=== PATIENT | female | born 1970 | race Caucasian/White ===

== ENCOUNTER 2018-06-15 00:16 | Outpatient (CLI) | payer MEDICAID, SELFPAY ==
[2018-06-15 10:50] LABS: Cholesterol 159 mg/dL (50-200); HDL Cholesterol 51 mg/dL (40-60); LDL CHOLESTEROL 82 mg/dL (<100); Triglyceride 137 mg/dL (30-150)
== END 2018-06-15 00:36 ==
PROVIDERS: PCP Nurse Practitioner Family; Visit Provider Nurse Practitioner Family
DX: E03.9 Hypothyroidism, unspecified (principal); Z00.00 Encounter for general adult medical examination without abnormal findings
CPT/HCPCS: 36415; 80061; 83721

== ENCOUNTER 2019-05-22 15:03 | Outpatient (REF) | payer MEDICAID, SELFPAY ==
--- NOTE | 2019-05-22 14:00 | PAPFT_PTH ---
PATIENT: Shanika Johnson LOC: [facility] U#:[id number] AGE/SX: 49/F ROOM: RE05/22/[address]: Christina Huston : 1970 BED: DIS: 05/22/2019 SPEC #: [id number] RECD: 05/26/19 12:12 STATUS: LOTTIE REJustina #: [id number] BILL: 05/22/19 14:[address]: Christina Huston DEPT: [facility] Cytology RECD BY: Prisca Samaniego Tissues: 1 - CX/ENDOCX FOR PAP SMEARS Procedures: PAP THIN PREP/UVM Screening HPV DNA PROBE Comments: [id number]
[2019-05-22 19:10] LABS: TSH (W/Ref FT4) 2.41 uIU/mL (0.36-3.74)
== END 2019-05-22 15:23 ==
LOC: NCHCN 15:03
PROVIDERS: PCP Nurse Practitioner Family; Visit Provider Nurse Practitioner Family
DX: E03.9 Hypothyroidism, unspecified (principal); Z12.4 Encounter for screening for malignant neoplasm of cervix; Z11.51 Encounter for screening for human papillomavirus (HPV)
CPT/HCPCS: 88142; 84443; 87624

== ENCOUNTER 2019-06-02 14:28 | Outpatient (REF) | payer MEDICAID, SELFPAY ==
[2019-06-02 14:48] LABS: Anion Gap 8.6 mmol/L (3-11); BUN 15 mg/dL (7-18); CO2 27.4 mmol/L (21.0-32.0); CREATININE 0.64 mg/dL (0.55-1.02); Calculated LDL 132 mg/dL; Chloride 103 mmol/L (98-107); Cholesterol 231 mg/dL (50-200); Glucose 86 mg/dL (70-100); HDL Cholesterol 58 mg/dL (40-60); Sodium 139 mmol/L (136-145); Triglyceride 206 mg/dL (30-150)
== END 2019-06-02 14:48 ==
LOC: NCHCN 14:28
PROVIDERS: PCP Nurse Practitioner Family; Visit Provider Nurse Practitioner Family
DX: E03.9 Hypothyroidism, unspecified (principal); E78.2 Mixed hyperlipidemia; Z00.00 Encounter for general adult medical examination without abnormal findings
CPT/HCPCS: 80048; 80061

== ENCOUNTER 2020-05-06 07:43 | Outpatient (REF) | payer MEDICAID, SELFPAY ==
[2020-05-06 20:54] LABS: Calculated LDL 146 mg/dL (<100); Cholesterol 229 mg/dL (<200); HDL Cholesterol 44 mg/dL (40-60); Triglyceride 199 mg/dL (<150)
== END 2020-05-06 08:03 ==
LOC: NCHCN 07:43
PROVIDERS: PCP Nurse Practitioner Family; Visit Provider Nurse Practitioner Family
DX: E78.2 Mixed hyperlipidemia (principal)
CPT/HCPCS: 80061

== ENCOUNTER 2020-06-07 21:51 | Outpatient (REF) | payer MEDICAID, SELFPAY ==
[2020-06-07 19:05] LABS: TSH (W/Ref FT4) 2.22 uIU/mL (0.36-3.74)
== END 2020-06-07 22:11 ==
LOC: NCHCN 21:51
PROVIDERS: PCP Nurse Practitioner Family; Visit Provider Nurse Practitioner Family
DX: E03.9 Hypothyroidism, unspecified (principal)
CPT/HCPCS: 84443

== ENCOUNTER 2020-07-07 01:33 | Outpatient (CLI) | payer MEDICAID, SELFPAY ==
--- NOTE | 2020-07-07 15:15 | DI.MAMMO_ITS ---
EXAM: MG MAMMO SCREENING CLINICAL HISTORY: SCREENING, Z12.39 TECHNIQUE: Bilateral full field digital CC and MLO mammographic images were obtained with 3D tomosyn thesis and utilizing computer aided detection (CAD). COMPARISON: Available for comparison. FINDINGS: Masses/Architectural Distortion: None seen. Microcalcifications: No suspicious pleomorphic-type are seen. Skin Thickening/Nipple Retraction: None. IMPRESSION: 1. No significant interval change with no specific features of malignancy noted. 2. Unless there is more urgent need, screening mammography is recommended, as per [employer] guidelines. BI-RADS Category 1 - Negative Breast Density - Category B - Scattered areas of fibroglandular density A negative radiographic report should not delay biopsy if a dominant or clinically suspicious mass is present. Up to ten percent of cancers are not identified on mammography. A negative report may reinforce clinical impression. Adenosis and dense breasts may obscure an underlying neoplasm. False positive reports average 6 to 10%. Patient will receive a letter notifying them of these results.
== END 2020-07-07 01:53 ==
PROVIDERS: PCP Nurse Practitioner Family; Visit Provider Nurse Practitioner Family
DX: Z12.31 Encounter for screening mammogram for malignant neoplasm of breast (principal)
CPT/HCPCS: 77063; 77067

== ENCOUNTER 2020-08-10 08:47 | Outpatient (REF) | payer MEDICAID, SELFPAY ==
[2020-08-10 19:59] LABS: Anion Gap 14.3 mmol/L (3-11); BUN 16 mg/dL (7-18); CO2 26.7 mmol/L (21.0-32.0); Calculated LDL 94 mg/dL (<100); Chloride 101 mmol/L (98-107); Cholesterol 195 mg/dL (<200); Glucose 95 mg/dL (74-106); HDL Cholesterol 59 mg/dL (40-60); Potassium 3.5 mmol/L (3.5-5.1); Sodium 142 mmol/L (136-145); Triglyceride 211 mg/dL (<150)
== END 2020-08-10 09:07 ==
LOC: NCHCN 08:47
PROVIDERS: PCP Nurse Practitioner Family; Visit Provider Nurse Practitioner Family
DX: I10 Essential (primary) hypertension (principal); E78.2 Mixed hyperlipidemia
CPT/HCPCS: 80048; 80061

== ENCOUNTER 2022-03-29 13:18 | Outpatient (REF) | payer MEDICAID, SELFPAY ==
[2022-03-29 15:06] LABS: Anion Gap 12.5 mmol/L (3-11); BUN 18 mg/dL (7-18); CO2 24.5 mmol/L (21.0-32.0); CREATININE 0.6 mg/dL (0.55-1.02); Calcium 8.7 mg/dL (8.5-10.1); Chloride 102 mmol/L (98-107); Glucose 100 mg/dL (74-106); Potassium 3.7 mmol/L (3.5-5.1); Sodium 139 mmol/L (136-145)
[2022-03-29 15:26] LABS: Calculated LDL 94 mg/dL (<100); Cholesterol 173 mg/dL (<200); HDL Cholesterol 52 mg/dL (40-60); Triglyceride 135 mg/dL (<150)
== END 2022-03-29 13:19 | disposition home or self-care (01) ==
LOC: NCHCN 13:18
PROVIDERS: PCP Nurse Practitioner Family; Visit Provider Nurse Practitioner Family
DX: I10 Essential (primary) hypertension (principal)
CPT/HCPCS: 80048; 80061

== ENCOUNTER → 2022-04-27 00:12 | Outpatient (CLI) | payer MEDICAID, SELFPAY ==
--- OUTSIDE RECORDS SUMMARY | 2022-04-27 00:14 | XMS_ITS | Encounter Summary ---
:1970 Author Organization [facility] Address [address] [place] [address] Care Team Providers Name Role Phone Unavailable Primary Care Provider Unavailable Encounter Details Date Type Department Care Team Description 12/01/2004 Results Only [facility] - Grazyna Moraes od, Freida Werner, CORK PRESSING MACHINE OPERATOR conversion [address] [place] [phone] (Wo rk) Social History Tobacco Use Types Packs/Day Years Used Date Never Assessed Sex Assigned at Date Recorded Not on file documented as of this encounter Plan of Treatment Not on filedocumented as of this encounter Procedures Procedure Name Priority Date/Time Associated Diagnosis Comme nts CYTOPATHOLOGY Routine 12/01/2004 0:00 EST Results for this procedure are i n the results section . documented in this encounter Results CYTOPATHOLOGY (12/01/2004 0:00 EST) Pathology Report: CYTOPATHOLOGY REPORT [facility] Reports generated via electronic interface contain katya ginal data; however they are lacking the format of the original re port. Caution should be taken when reading/interpreting unfo rmatted reports. Name: ? SUPA VIVAS ? Accession #: ? [id number] : ? 1970 (Age: 34) ??F ?Collect Date: ? 11/21 Location: ? [facility] ? Receive Date : ? 12/05/2004 Provider: ?FREIDA GATES [facility] Copy to: ? Specimen/Source: ?ThinPrep Pap Test, Cervix/ Endocervix Last Menstrual Period: ? 11/08/04 Previous Gynecologic Pathology: ? HSIL: 09/23, 01/21 HPV: Positive 10/06/02 Treatment History: ? LEEP: 01/21 Cone biopsy: 01/21 Other: ? Additional clinical information: BCC , , Additional clinical information: Paps WNL 09/24, 03/24, 09/25, 03/25, 10/27 HPVA - HPV testing requested if ASC-US on the current ThinPrep Pap test. ? SPECIMEN ADEQUACY ? Satisfactory for Evaluation - transformation zone component present GENERAL CATEGORIZATION ? Negative for Intraepithelial Lesion or Malignan cy ? Document reviewed and electronically signed by: ? SUNITA Hilliard(ASCP) ? Report Date: ??12/07/2004 14:31 End of Report Specimen Performing Organization Address City/State/ZIP Code Phon e Number [facility] [address] [phone] SERVICES [facility] [address] [place] [address] documented in this encounter Visit Diagnoses Not on filedocumented in this encounter
--- OUTSIDE RECORDS SUMMARY | 2022-04-27 00:14 | XMS_ITS | Encounter Summary ---
:[address] [facility] Address [address] [place] [address] Care Team Providers Name Role Phone Hailee Teague MD Primary Care Provider Encounter Details Date Type Department Care Team Description 05/22/2019 Results Only [facility]- Speedy Ludwig, [place] [phone] [address] [place], [place] [phone] (Wo rk) Social History Tobacco Use Types Packs/Day Years Used Date Never Assessed Sex Assigned at Date Recorded Not on file documented as of this encounter Plan of Treatment Not on filedocumented as of this encounter Procedures Procedure Name Priority Date/Time Associated Diagnosis Comme nts PAP TEST- RESULT Routine 05/22/2019 0:00 EDT Resu lts for this ONLY procedure are i n the results section. documented in this encounter Results PAP TEST- RESULT ONLY (05/22/2019 0:00 EDT) Pathology Report: CYTOPATHOLOGY REPORT [facility] Reports generated via electronic interface contain katya ginal data; SERVICES however they are lacking the format of the original re port. Caution should be taken when reading/interpreting unfo rmatted reports. Name: ? SUPA VIVAS ? Accession #: ? [id number] ? : ? 1970 (Age: [age]) ??F ?Collect Date: ? 05/22/2019 ? Location: ? [facility] ? Receive Date: ? 9 ? Provider: SPEEDY LITTLE ROCKET TEST FIRE WORKER Copy to: ? Final Report SPECIMEN ADEQUACY ? Satisfactory for Evaluation - transformation zone component absent GENERAL CATEGORIZATION ? Negative for Intraepithelial Lesion or Malignan cy ?? Hormonal/Contraceptive status: None Other: Additional clinical information: Z00.00, Z12.4, Z11.51 Specimen/Source: ??Pap Test, Cervix, ThinPrep Imaging System with manual evaluation Document reviewed and electronically signed by: ? Tony Winters, CT(ASCP) ? Report ??Date: 06/01/2019 12:52 HPV with Pap Test ? Date Ordered: ? 06/01/2019 ? Status: ?? S igned Out ?Date Complete: ? 06/02/2019 ? By: ??Sy stem Interface ? Date Reported: ? 06/02/2019 ? Interpretation RESULT: Negative for HPV. No E6 or E7 mRNA is detected from HPV types 16,18,31,3 3,35, 39,45,51,52,56,58,59,66, and 68 by machine shorthand teacher media annel amplification. Comments Document reviewed and electronically signed by: ? System Interface ? Report date: 06/02/2019 By the signature above, the attending physician certif ies that he/she has personally conducted a gross and/or microscopic examin ation of the described specimens and rendered or confirmed the above diagnosi s. End of Report Specimen Performing Organization Address City/State/ZIP Code Phon e Number [facility] [address] [place] [address] SERVICES documented in this encounter Visit Diagnoses Not on filedocumented in this encounter Care Teams Travel Physical Therapist Relationship Specialty Start Date End Date Hailee Teague MD PCP - General 08/05/[address] [place] [phone] documented as of this encounter
--- OUTSIDE RECORDS SUMMARY | 2022-04-27 00:14 | XMS_ITS | Encounter Summary ---
:1970 Author Organization [facility] Address [address] [place] [address] Care Team Providers Name Role Phone Hailee Cook MD Primary Care Provider Encounter Details Date Type Department Care Team Description 11/15/2016 Results Only [facility]- Freida Cuenca, [facility] [phone] [place] [phone] (Wo rk) Social History Tobacco Use Types Packs/Day Years Used Date Never Assessed Sex Assigned at Date Recorded Not on file documented as of this encounter Plan of Treatment Not on filedocumented as of this encounter Procedures Procedure Name Priority Date/Time Associated Diagnosis Comme nts PAP TEST- RESULT Routine 11/15/2016 0:00 EST Resu lts for this ONLY procedure are i n the results section. documented in this encounter Results PAP TEST- RESULT ONLY (11/15/2016 0:00 EST) Pathology Report: CYTOPATHOLOGY REPORT [facility] Reports generated via electronic interface contain katya ginal data; SERVICES however they are lacking the format of the original re port. Caution should be taken when reading/interpreting unfo rmatted reports. Name: ? SUPA VIVAS ? Accession #: ? [id number] ? : ? 1970 (Age: [age]) ??F ?Collect Date: ? 11/15/2016 ? Location: ? [facility] ? Receive Date: ? 11/16/19 17 ? Provider: FREIDA GATES SAP INTEGRATION ARCHITECT Copy to: HAILEE COOK MD ? Final Report SPECIMEN ADEQUACY ? Satisfactory for Evaluation - transformation zone component present GENERAL CATEGORIZATION ? Negative for Intraepithelial Lesion or Malignan cy ?? Last Menstrual Period: 10/05/2016 Previous Gynecologic Pathology: ESTRADA II: 2000 Specimen/Source: ??Pap Test, Cervix, ThinPrep Imaging System with manual evaluation Document reviewed and electronically signed by: ? Shanell Chamberlain, CT(ASCP) ? Report ??Date: 11/22/2016 13:09 HPV with Pap Test ? Date Ordered: ? 11/22/2016 ? Status: ?? S igned Out ?Date Complete: ? 11/23/2016 ? By: ??Sys tem Interface ? Date Reported: ? 11/23/2016 ? Interpretation RESULT: Negative for HPV. No E6 or E7 mRNA is detected from HPV types 16,18,31,3 3,35, 39,45,51,52,56,58,59,66, and 68 by commercial hvac service technician media annel amplification. Comments Document reviewed and electronically signed by: ? System Interface ? Report date: 11/23/2016 By the signature above, the attending physician certif ies that he/she has personally conducted a gross and/or microscopic examin ation of the described specimens and rendered or confirmed the above diagnosi s. End of Report Specimen Performing Organization Address City/State/ZIP Code Phon e Number [facility] [address] [place] [address] SERVICES documented in this encounter Visit Diagnoses Not on filedocumented in this encounter Care Teams Telegraph Plant Maintainer Relationship Specialty Start Date End Date Hailee Cook MD PCP - General 08/05/[address] [place] [phone] documented as of this encounter
--- OUTSIDE RECORDS SUMMARY | 2022-04-27 00:14 | XMS_ITS | Encounter Summary ---
:1970 Author Organization [facility] Address [address] [place] [address] Care Team Providers Name Role Phone Hailee Teague MD Primary Care Provider Encounter Details Date Type Department Care Team Description 08/21/2017 Phlebotomy Only [facility] - Die Maker, [facility] [place] [facility] [address] [place] [address] Social History Tobacco Use Types Packs/Day Years Used Date Never Assessed Sex Assigned at Date Recorded Not on file documented as of this encounter Plan of Treatment Not on filedocumented as of this encounter Visit Diagnoses Not on filedocumented in this encounter Care Teams Finisher Polisher Relationship Specialty Start Date End Date Hailee Teague MD PCP - General 08/05/[address] [place] [phone] documented as of this encounter
--- OUTSIDE RECORDS SUMMARY | 2022-04-27 00:14 | XMS_ITS | Encounter Summary ---
:1970 Author Organization [facility] Address [address] [place] [address] Care Team Providers Name Role Phone Unavailable Primary Care Provider Unavailable Encounter Details Date Type Department Care Team Description 12/04/2005 Results Only [facility] - Grazyna Moraes od, Freida Werner, PATIENT RELATIONS COORDINATOR conversion [address] [place] [phone] (Wo rk) Social History Tobacco Use Types Packs/Day Years Used Date Never Assessed Sex Assigned at Date Recorded Not on file documented as of this encounter Plan of Treatment Not on filedocumented as of this encounter Procedures Procedure Name Priority Date/Time Associated Diagnosis Comme nts CYTOPATHOLOGY Routine 12/04/2005 0:00 EST Results for this procedure are i n the results section . documented in this encounter Results CYTOPATHOLOGY (12/04/2005 0:00 EST) Pathology Report: CYTOPATHOLOGY REPORT [facility] Reports generated via electronic interface contain katya ginal data; however they are lacking the format of the original re port. Caution should be taken when reading/interpreting unfo rmatted reports. Name: ? SUPA VIVAS ? Accession #: ? [id number] : ? 1970 (Age: 35) ??F ?Collect Date: ? 11/21 Location: ? [facility] ? Receive Date : ? 12/05/2005 Provider: ?FREIDA GATES PATIENT RELATIONS COORDINATOR Copy to: ? Specimen/Source: ? ThinPrep Pap Test, Cervix/Endocervix, processed on [email or web address] ThinPrep Imaging System, with manual evaluation Last Menstrual Period: ? 11/06/05 Previous Gynecologic Pathology: ? Benign cellular changes: , & HSIL: 09/23 & 01/21 HPV: + 10/06/02 Treatment History: ? LEEP: 01/21 Cone biopsy: 01/21 Other: ? Additional clinical information: Paps negative since HPVA - HPV testing requested if ASC-US on the current ThinPrep Pap test. ? SPECIMEN ADEQUACY ? Satisfactory for Evaluation - transformation zone component present GENERAL CATEGORIZATION ? Negative for Intraepithelial Lesion or Malignan cy ? Document reviewed and electronically signed by: ? SUNITA Fong(ASCP)(IAC) ? Report Date: ??12/10/2005 13:31 End of Report Specimen Performing Organization Address City/State/ZIP Code Phon e Number [facility] [address] [place] [address] SERVICES [facility] [address] [place] [address] documented in this encounter Visit Diagnoses Not on filedocumented in this encounter
--- OUTSIDE RECORDS SUMMARY | 2022-04-27 00:14 | XMS_ITS | Encounter Summary ---
:1970 Author Organization [facility] Address [address] [place] [address] Care Team Providers Name Role Phone Unavailable Primary Care Provider Unavailable Encounter Details Date Type Department Care Team Description 11/19/2003 Results Only [facility] - Grazyna Moraes od, Freida Werner, TRIM ATTACHER conversion [address] [place] [phone] (Wo rk) Social History Tobacco Use Types Packs/Day Years Used Date Never Assessed Sex Assigned at Date Recorded Not on file documented as of this encounter Plan of Treatment Not on filedocumented as of this encounter Procedures Procedure Name Priority Date/Time Associated Diagnosis Comme nts CYTOPATHOLOGY Routine 11/19/2003 0:00 EST Results for this procedure are i n the results section . documented in this encounter Results CYTOPATHOLOGY (11/19/2003 0:00 EST) Pathology Report: CYTOPATHOLOGY REPORT [facility] Reports generated via electronic interface contain katya ginal data; however they are lacking the format of the original re port. Caution should be taken when reading/interpreting unfo rmatted reports. Name: ? SUPA VIVAS ? Accession #: ? [id number] : ? 1970 (Age: 33) ??F ?Collect Date: ? 10/25 Location: ? [facility] ? Receive Date : ? 11/22/2003 Provider: ?FREIDA GATES TRIM ATTACHER Copy to: ? Specimen/Source: ?ThinPrep Pap Test, Cervix/ Endocervix Last Menstrual Period: ? 11/09/03 Hormonal/Contraceptive Status: ? Oral contraceptives Previous Gynecologic Pathology: ? Benign cellular changes: , & HSIL: 09/23 & 01/21 HPV: positive 10/06/02 Treatment History: ? LEEP: Focal HSIL 01/21 Cervical biopsy: HSIL 01/21 Other: ? Additional clinical information: neg paps 09/24, 03/24 , 09/25 & 03/25 HPVA - HPV testing requested if ASC-US on the current ThinPrep Pap test. ? SPECIMEN ADEQUACY ? Satisfactory for Evaluation - transformation zone component present GENERAL CATEGORIZATION ? Negative for Intraepithelial Lesion or Malignan cy ? Document reviewed and electronically signed by: ? EMMETT Rodríguez(ASCP) ? Report Date: ??11/25/2003 10:45 End of Report Specimen Performing Organization Address City/State/ZIP Code Phon e Number [facility] [address] [place] [address] SERVICES [facility] [address] [place] [address] documented in this encounter Visit Diagnoses Not on filedocumented in this encounter
--- OUTSIDE RECORDS SUMMARY | 2022-04-27 00:14 | XMS_ITS | Encounter Summary ---
:1970 Author Organization [facility] Address [address] [place] [address] Care Team Providers Name Role Phone Unavailable Primary Care Provider Unavailable Encounter Details Date Type Department Care Team Description 12/13/2006 Results Only [facility] - Grazyna Moraes od, Freida Werner, TAG MACHINE OPERATOR conversion [address] [place] [phone] (Wo rk) Social History Tobacco Use Types Packs/Day Years Used Date Never Assessed Sex Assigned at Date Recorded Not on file documented as of this encounter Plan of Treatment Not on filedocumented as of this encounter Procedures Procedure Name Priority Date/Time Associated Diagnosis Comme nts CYTOPATHOLOGY Routine 12/13/2006 0:00 EDT Results for this procedure are i n the results section . documented in this encounter Results CYTOPATHOLOGY (12/13/2006 0:00 EDT) Pathology Report: CYTOPATHOLOGY REPORT [facility] Reports generated via electronic interface contain katya ginal data; however they are lacking the format of the original re port. Caution should be taken when reading/interpreting unfo rmatted reports. Name: ? SUPA VIVAS ? Accession #: ? [id number] : ? 1970 (Age: 36) ??F ?Collect Date: ? 11/22 Location: ? [facility] ? Receive Date : ? 12/16/2006 Provider: ?FREIDA GATES TAG MACHINE OPERATOR Copy to: ? Specimen/Source: ? ThinPrep Pap Test, Cervix/Endocervix, processed on [employer] ThinPrep Imaging System, with manual evaluation Last Menstrual Period: ? 12/06/06 Previous Gynecologic Pathology: ? Benign cellular changes: , , HSIL: 09/23, 01/21 Treatment History: ? LEEP: 01/21 Cone biopsy: 01/21 Other: ? Additional clinical information: Paps negative since HPVA - HPV testing requested if ASC-US on the current ThinPrep Pap test. ? SPECIMEN ADEQUACY ? Satisfactory for Evaluation - transformation zone component present GENERAL CATEGORIZATION ? Negative for Intraepithelial Lesion or Malignan cy ? Document reviewed and electronically signed by: ? SUNITA Kamara(ASCP) ? Report Date: ??12/17/2006 14:48 End of Report Specimen Performing Organization Address City/State/ZIP Code Phon e Number [facility] [address] [phone] SERVICES [facility] [address] [place] [address] documented in this encounter Visit Diagnoses Not on filedocumented in this encounter
--- OUTSIDE RECORDS SUMMARY | 2022-04-27 00:14 | XMS_ITS | Encounter Summary ---
:1970 Author Organization [facility] Address [address] [place] [address] Care Team Providers Name Role Phone Unavailable Primary Care Provider Unavailable Encounter Details Date Type Department Care Team Description 01/01/2008 Results Only [facility] - Freida Bosch od, CONCHE LOADER AND UNLOADER conversion [address] [place] [phone] (Wo rk) Social History Tobacco Use Types Packs/Day Years Used Date Never Assessed Sex Assigned at Date Recorded Not on file documented as of this encounter Plan of Treatment Not on filedocumented as of this encounter Procedures Procedure Name Priority Date/Time Associated Comments Diagnosis HPV DETECTION, HIGH Routine 01/01/2008 9:00 Resul ts for this RISK TYPES EDT procedure are i n the results section. CYTOPATHOLOGY Routine 01/01/2008 0:00 Results for this EDT procedure are i n the results section. documented in this encounter Results HUMAN PAPILLOMA VIRUS DNA TEST (01/01/2008 9:00 EDT) Specimen Description Cervix, ThinPrep [facility] vial Result Negative for HPV [facility] types 16, 18, 31, 33, 35, 39, 45, 51, 52, 56, 58, 59, and 68. Report Status Final [facility] [id number] Specimen Performing Organization Address City/State/ZIP Code Phon e Number [facility] [address] [place] [address] SERVICES [facility] [address] [place] [address] CYTOPATHOLOGY (01/01/2008 0:00 EDT) Pathology Report: CYTOPATHOLOGY REPORT [facility] Reports generated via electronic interface contain katya ginal data; however they are lacking the format of the original re port. Caution should be taken when reading/interpreting unfo rmatted reports. Name: ? SUPA VIVAS ? Accession #: ? [id number] : ? 1970 (Age: 37) ??F ?Collect Date: ? 12/22 Location: ? [facility] ? Receive Date : ? 01/01/2008 Provider: ?FREIDA GATES CONCHE LOADER AND UNLOADER Copy to: ? Specimen/Source: ? ThinPrep Pap Test, Cervix/Endocervix, processed on [employer] ThinPrep Imaging System, with manual evaluation Last Menstrual Period: ? 12-17-07 Previous Gynecologic Pathology: ? Benign cellular changes: , , HSIL: 09-23, 01-21 Treatment History: ? LEEP: 01-21 Cone biopsy Other: ? Additional clinical information: paps negative since HPVDX - HPV testing requested regardless of diag nosis on current ThinPrep Pap test. ? SPECIMEN ADEQUACY ? Satisfactory for Evaluation - transformation zone component present GENERAL CATEGORIZATION ? Negative for Intraepithelial Lesion or Malignan cy ? Document reviewed and electronically signed by: ? SUNITA Kamara(ASCP) ? Report Date: ??01/06/2008 15:55 End of Report Specimen Performing Organization Address City/State/ZIP Code Phon e Number [facility] [address] [place] [address] SERVICES [facility] [address] [place] [address] documented in this encounter Visit Diagnoses Not on filedocumented in this encounter
--- OUTSIDE RECORDS SUMMARY | 2022-04-27 00:14 | XMS_ITS | Encounter Summary ---
:1970 Author Organization [facility] Address [address] [place] [address] Care Team Providers Name Role Phone Unavailable Primary Care Provider Unavailable Encounter Details Date Type Department Care Team Description 04/09/2003 Results Only [facility] - Grazyna Moraes od, Freida Werner, GRADE TAMPER conversion [address] [place] [phone] (Wo rk) Social History Tobacco Use Types Packs/Day Years Used Date Never Assessed Sex Assigned at Date Recorded Not on file documented as of this encounter Plan of Treatment Not on filedocumented as of this encounter Procedures Procedure Name Priority Date/Time Associated Diagnosis Comme nts CYTOPATHOLOGY Routine 04/09/2003 0:00 EDT Results for this procedure are i n the results section . documented in this encounter Results CYTOPATHOLOGY (04/09/2003 0:00 EDT) Pathology Report: CYTOPATHOLOGY REPORT [facility] Reports generated via electronic interface contain katya ginal data; however they are lacking the format of the original re port. Caution should be taken when reading/interpreting unfo rmatted reports. Name: ? SUPA VIVAS ? Accession #: ? [id number] : ? 1970 (Age: 33) ??F ?Collect Date: ? 03/23 Location: ? [facility] ? Receive Date : ? 04/12/2003 Provider: ?FREIDA GATES GRADE TAMPER Copy to: ? Specimen/Source: ?ThinPrep Pap Test, Cervix/ Endocervix Last Menstrual Period: ? 03/29/03 Hormonal/Contraceptive Status: ? Oral contraceptives Previous Gynecologic Pathology: ? Benign cellular changes: , and HSIL: 10/18/00 and 01/21 HPV: 10/06/02 Treatment History: ? LEEP: 01/21 focal HSIL on Bx. ? SPECIMEN ADEQUACY ? Satisfactory for Evaluation - transformation zone component present GENERAL CATEGORIZATION ? Negative for Intraepithelial Lesion or Malignan cy ? Document reviewed and electronically signed by: ? Naya Sanchez SCT(ASCP) ? Report Date: ??04/15/2003 08:50 End of Report Specimen Performing Organization Address City/State/ZIP Code Phon e Number [facility] [address] [place] [address] SERVICES [facility] [address] [place] [address] documented in this encounter Visit Diagnoses Not on filedocumented in this encounter
--- OUTSIDE RECORDS SUMMARY | 2022-04-27 00:15 | XMS_ITS | Encounter Summary ---
:1970 Author Organization [facility] Address [address] [place] [address] Care Team Providers Name Role Phone Unavailable Primary Care Provider Unavailable Encounter Details Date Type Department Care Team Description 02/12/2001 Results Only [facility] - Mina Middleton MD conversion [address] [place] [id number] Social History Tobacco Use Types Packs/Day Years Used Date Never Assessed Sex Assigned at Date Recorded Not on file documented as of this encounter Plan of Treatment Not on filedocumented as of this encounter Procedures Procedure Name Priority Date/Time Associated Diagnosis Comme nts SURGICAL PATHOLOGY Routine 02/12/2001 0:00 EDT Re sults for this procedure are i n the results section. documented in this encounter Results SURGICAL PATHOLOGY (02/12/2001 0:00 EDT) Pathology Report: SURGICAL PATHOLOGY REPORT [facility] Reports generated via electronic interface contain katya ginal data; LAB however they are lacking the format of the original re port. Caution should be taken when reading/interpreting unfo rmatted reports. Name: ? SUPA VIVAS ? Accession #: ? [id number] ? : ? 1970 (Age: 31) ??F ? Collect Date: ? 02/12/2001 ? Location: ? [facility] ? Receive Date: ? 001 ? Provider: MINA WEAVER MD Copy to: JONATHAN COOK MD ? Final Pathologic Diagnosis: ? Cervix, LEEP excision: 1. ?Ectocervical portion: ? - Focal high grade sq uamous intraepithelial lesion (ESTRADA II). ??See comment. - Ectocervical tissue edges negative for dysplasia. - Chronic follicular cervicitis. 2. ?Endocervical portion: ? - No dysplasia identified. ?? Comment: ? The ectocervical port ion of the LEEP excisional biopsy shows a single focus of high grade squamous intra epithelial lesion (A7). ??Both the ectocervical and endocervical tissue edges are negative for dysplasia i n that portion of the specimen and the endocervica l portion of the LEEP excisional biopsy is negative for dysplasia. (Dr. Cook)/[facility] Document reviewed and electronically signed by: JONATHAN COOK MD Report ??Date: 02/13/2001 17:15 By the signature above, the attending physician certif ies that he/she has personally conducted a gross and/or microscopic examin ation of the described specimens and rendered or confirmed the above diagnosi s. Specimen(s) Received: ? LEEP with endocx specimen Clinical History: ? HGSIL PAP, hx prev ESTRADA I ? Gross Description: ? Received in formalin labelled Vivas and LEEP is a rees-davis annular unoriented 2.2 x 1.2 cm prod uct of a LEEP excision of cervix excised to a depth of 0.5 cm. ??One aspect is surfaced by a rees-davis mucosa. ??Also received is a rees-davis rubbery unoriented annular 1.5 x 0.8 cm product of a LEEP excision of cervix excised to a depth of 0.2 cm. ??The smaller annular soft tissue does not have any mucosa grossly iden tified. ??The endocervical margin of both tissues are inked black and ectocervical inked blue. ??The larger annular soft tissue is radially sectioned and entir hemanth submitted as (A1) to (A7). ??The smaller annular soft tissue is radially sect ioned and entirely submitted as (A8) to (A11). ??(Marianne Mcfarland)/jake End of Report Specimen Performing Organization Address City/State/ZIP Code Phon e Number [facility] [address] [place] [address] SERVICES [facility] [address] [place] [phone] documented in this encounter Visit Diagnoses Not on filedocumented in this encounter
--- OUTSIDE RECORDS SUMMARY | 2022-04-27 00:15 | XMS_ITS | Encounter Summary ---
:1970 Author Organization [facility] Address [address] [place] [address] Care Team Providers Name Role Phone Unavailable Primary Care Provider Unavailable Encounter Details Date Type Department Care Team Description 10/06/2002 Results Only [facility] - Freida Bosch od, PRICING STRATEGIST conversion [address] [place] [phone] (Wo rk) Social History Tobacco Use Types Packs/Day Years Used Date Never Assessed Sex Assigned at Date Recorded Not on file documented as of this encounter Plan of Treatment Not on filedocumented as of this encounter Procedures Procedure Name Priority Date/Time Associated Comments Diagnosis HPV DETECTION, HIGH Routine 10/06/2002 15:50 Resu lts for this RISK TYPES EST procedure are i n the results section. CYTOPATHOLOGY Routine 10/06/2002 0:00 Results for this EST procedure are i n the results section. documented in this encounter Results HUMAN PAPILLOMA VIRUS DNA TEST (10/06/2002 15:50 EST) Specimen Description Cervix, ThinPrep [facility] Result Positive for one or more of HPV types 16,18,31,33,35,39,45,51,52,56,58,59, or 68. These MCCORD A LLEN high/intermediate risk HPV t ypes are associated with dysplasia and some cervical cancers. LAB Report Status Final [facility] [id number] LAB Specimen Performing Organization Address City/State/ZIP Code Phon e Number [facility] [address] [place] [address] SERVICES [facility] [address] [place] [address] CYTOPATHOLOGY (10/06/2002 0:00 EST) Pathology Report: CYTOPATHOLOGY REPORT [facility] Reports generated via electronic interface contain katya ginal data; however they are lacking the format of the original re port. Caution should be taken when reading/interpreting unfo rmatted reports. Name: ? SUPA VIVAS ? Accession #: ? [id number] : ? 1970 (Age: 32) ??F ?Collect Date: ? 09/23 Location: ? [facility] ? Receive Date : ? 10/07/2002 Provider: ?FREIDA GATES PRICING STRATEGIST Copy to: ? Specimen/Source: ?ThinPrep Pap Test, Cervix/ Endocervix Last Menstrual Period: ? 09/16/02 Hormonal/Contraceptive Status: ? Oral contraceptives Previous Gynecologic Pathology: ? ASC-US: , , HSIL: 10/18/00 HPV Treatment History: ? LEEP: 01/21 focal HSIL on bx Other: ? Additional clinical information: 09/24,m 04/21/02 negati ve HPVDX - HPV testing requested regardless of diag nosis on current ThinPrep Pap test. ? SPECIMEN ADEQUACY ? Satisfactory for Evaluation - transformation zone component absent GENERAL CATEGORIZATION ? Negative for Intraepithelial Lesion or Malignan cy ? Document reviewed and electronically signed by: ? SUNITA Hilliard(ASCP) ? Report Date: ??10/08/2002 13:39 End of Report Specimen Performing Organization Address City/State/ZIP Code Phon e Number [facility] [address] [place] [address] SERVICES [facility] [address] [place] [address] documented in this encounter Visit Diagnoses Not on filedocumented in this encounter
--- OUTSIDE RECORDS SUMMARY | 2022-04-27 00:15 | XMS_ITS | Encounter Summary ---
:1970 Author Organization [facility] Address [address] [place] [address] Care Team Providers Name Role Phone Unavailable Primary Care Provider Unavailable Encounter Details Date Type Department Care Team Description 03/12/2000 Results Only [facility] - Mina Middleton MD conversion [address] [place] [phone] Social History Tobacco Use Types Packs/Day Years Used Date Never Assessed Sex Assigned at Date Recorded Not on file documented as of this encounter Plan of Treatment Not on filedocumented as of this encounter Procedures Procedure Name Priority Date/Time Associated Diagnosis Comme nts SURGICAL PATHOLOGY Routine 03/12/2000 0:00 EDT Re sults for this procedure are i n the results section. documented in this encounter Results SURGICAL PATHOLOGY (03/12/2000 0:00 EDT) Pathology Report: SURGICAL PATHOLOGY REPORT [facility] Reports generated via electronic interface contain katya ginal data; LAB however they are lacking the format of the original re port. Caution should be taken when reading/interpreting unfo rmatted reports. Name: ? SUPA VIVAS ? Accession #: ? [id number] ? : ? 1970 (Age: 30) ??F ? Collect Date: ? 03/12/2000 ? Location: ? [facility] ? Receive Date: ? 000 ? Provider: MINA WEAVER MD Copy to: JONATHAN COOK MD ? Final Pathologic Diagnosis: ? Cervix, biopsy: - Transformation zone cervic al tissue with squamous metaplasia, reactive atypia, and mild acute and ??chronic inflammation. Document reviewed and electronically signed by: Dayanara Gibson MD Report ??Date: 03/15/2000 17:07 By the signature above, the attending physician certif ies that he/she has personally conducted a gross and/or microscopic examin ation of the described specimens and rendered or confirmed the above diagnosi s. Specimen(s) Received: ? Cervical biopsy Clinical History: ? H/O abnormal PAP ASCUS, LIS; ASCUS, S IL Gross Description: ? Received in formalin labelled Vivas and cervix is a rees-davis, irregular 0.3 x 0.2 x 0.2 cm soft tiss ue fragment. ??The specimen is entirely submitted in one cassette. ??(Marianne Mcfarland)/[facility] End of Report Specimen Performing Organization Address City/State/ZIP Code Phon e Number [facility] [address] [place] [address] SERVICES [facility] [address] [place] [address] documented in this encounter Visit Diagnoses Not on filedocumented in this encounter
--- OUTSIDE RECORDS SUMMARY | 2022-04-27 00:15 | XMS_ITS | Encounter Summary ---
:1970 Author Organization [facility] Address [address] [place] [address] Care Team Providers Name Role Phone Unavailable Primary Care Provider Unavailable Encounter Details Date Type Department Care Team Description 10/18/2000 Results Only [facility] - Mina Middleton MD conversion [address] [place] [id number] Social History Tobacco Use Types Packs/Day Years Used Date Never Assessed Sex Assigned at Date Recorded Not on file documented as of this encounter Plan of Treatment Not on filedocumented as of this encounter Procedures Procedure Name Priority Date/Time Associated Diagnosis Comme nts CYTOPATHOLOGY Routine 10/18/2000 0:00 EST Results for this procedure are i n the results section . documented in this encounter Results CYTOPATHOLOGY (10/18/2000 0:00 EST) Pathology Report: CYTOPATHOLOGY REPORT [facility] Reports generated via electronic interface contain katya ginal data; however they are lacking the format of the original re port. Caution should be taken when reading/interpreting unfo rmatted reports. Name: ? SUPA VIVAS ? Accession #: ? [id number] : ? 1970 (Age: 30) ??F ?Collect Date: ? 09/24 Location: ? [facility] ? Receive Date : ? 10/21/2000 Provider: ?MINA WEAVER MD Copy to: ? Specimen/Source: ?ThinPrep Pap Test, Cervix/ Endocervix Last Menstrual Period: ? 10/06/00 Hormonal/Contraceptive Status: ? Control Pills Previous Gynecologic Pathology: ? ASC-US: , , MERISSA: ?? Treatment History: ? Cervical biopsy: Other: ? Additional clinical information: endomet. curett ing. ? SPECIMEN ADEQUACY ? Satisfactory for evaluation. GENERAL CATEGORIZATION ? Epithelial Cell Abnormality DESCRIPTIVE DIAGNOSIS ? High grade squamous intraepithelial lesion (HSI L). ? Document reviewed and electronically signed by: ? JOHN HALL MD [facility] ? Report Date: ??10/28/2000 16:32 End of Report Specimen Performing Organization Address City/State/ZIP Code Phon e Number [facility] [address] [place] [address] SERVICES [facility] [address] [place] [address] documented in this encounter Visit Diagnoses Not on filedocumented in this encounter
--- NOTE | 2022-04-27 14:40 | DI.MAMMO_ITS ---
Exam(s) MAMMO SCREENING EXAM: MAMMO SCREENING CLINICAL HISTORY: SCREENING FOR BREAST CANCER Z12.39 TECHNIQUE: Bilateral full field digital CC and MLO mammographic images were obtained with 3D tomosyn thesis and utilizing computer aided detection (CAD). COMPARISON: Available for comparison. FINDINGS: Masses/Architectural Distortion: None seen. Microcalcifications: No suspicious pleomorphic-type are seen. Skin Thickening/Nipple Retraction: None. IMPRESSION: 1. No significant interval change with no specific features of malignancy noted. 2. Unless there is more urgent need, screening mammography is recommended, as per [employer] guidelines. BI-RADS Category 1 - Negative Breast Density - Category B - Scattered areas of fibroglandular density Breast density category C or D implies that the patient has dense breast tissue. Dense breast tissue is very common and is not abnormal but dense breast tissue can make it harder to find cancer on a ma mmogram. Also, dense breast tissue may increase their breast cancer risk. This information about the result of the mammogram report was provided to the patient to raise their awareness. Use this report when you speak with the patient about their risks for breast cancer, which includes their family hist ory. At that time, you may recommend for more screening tests (Ultrasound or MRI) as they might be us eful based on their risk. A negative radiographic report should not delay biopsy if a dominant or clinically suspicious mass is present. Up to ten percent of cancers are not identified on mammography. A negative report may reinforce clinical impression. Adenosis and dense breasts may obscure an underlying neoplasm. False positive reports average 6 to 10%. Patient will receive a letter notifying them of these results.
== END ==
PROVIDERS: PCP Nurse Practitioner Family; Visit Provider Nurse Practitioner Family
DX: Z12.31 Encounter for screening mammogram for malignant neoplasm of breast (principal)
CPT/HCPCS: 77063; 77067

== ENCOUNTER 2022-07-25 15:59 | Outpatient (REF) | payer MEDICAID, SELFPAY ==
--- NOTE | 2022-07-25 14:45 | ORMUBX_PTH ---
PATIENT: Shanika Johnson LOC: N U#:[id number] AGE/SX: 52/F ROOM: RE07/25/[address]: Dean Beatty MD : 1970 BED: DIS: 07/25/2022 SPEC #: [id number] RECD: 07/26/22 12:46 STATUS: LOTTIE REQ #: [id number] BILL: 07/25/22 14:[address]: Dean Beatty DEPT: Surgical Specimen RECD BY: Parisa Lam ENTERED: 07/26/22 12:47 SP TYPE: ORMUBX OTHR DR: Christina Huston Tissues: 1 - MUCOSA, NOS Procedures: GROSS AND MICRO LEVEL 4 Comments: [id number]
== END 2022-07-25 16:00 | disposition home or self-care (01) ==
LOC: LBN 15:59
PROVIDERS: PCP Nurse Practitioner Family; Visit Provider Otolaryngology
DX: J39.2 Other diseases of pharynx (principal)
CPT/HCPCS: 88305

== ENCOUNTER 2023-08-27 17:11 | Outpatient (REF) | payer MEDICAID, SELFPAY ==
[2023-08-27 18:58] LABS: ALT 46 U/L (14-59); AST 58 U/L (15-37); Albumin 3.8 g/dL (3.4-5.0); Alkaline Phosphatase 98 U/L (46-116); Anion Gap 9.8 mmol/L (3-11); BUN 11 mg/dL (7-18); Bilirubin, Total 0.7 mg/dL (0.2-1.0); CO2 27.2 mmol/L (21.0-32.0); CREATININE 0.8 mg/dL (0.55-1.02); Calcium 9.6 mg/dL (8.5-10.1); Calculated LDL 168 mg/dL (<100); Chloride 101 mmol/L (98-107); Cholesterol 250 mg/dL (<200); Glucose 104 mg/dL (74-106); HDL Cholesterol 51 mg/dL (40-60); Potassium 3.3 mmol/L (3.5-5.1); Sodium 138 mmol/L (136-145); TSH (W/Ref FT4) 2.62 uIU/mL (0.36-3.74); Total Protein 8.1 g/dL (6.4-8.2); Triglyceride 155 mg/dL (<150)
[2023-08-28 09:48] LABS: FREE T4 0.95 ng/dL (0.76-1.46)
== END 2023-08-27 17:12 | disposition home or self-care (01) ==
LOC: NCHCN 17:11
PROVIDERS: PCP Nurse Practitioner Family; Visit Provider Nurse Practitioner Family
DX: I10 Essential (primary) hypertension (principal); E78.2 Mixed hyperlipidemia; E03.9 Hypothyroidism, unspecified
CPT/HCPCS: 80053; 80061; 84439; 84443

== ENCOUNTER 2024-09-08 15:47 | Outpatient (REF) | payer MEDICAID, SELFPAY ==
[2024-09-08 20:11] LABS: Abs Immature Grans 0.01 10^3/uL (0.0-0.06); Absolute Basophil Count 0.04 10^3/uL (0.0-0.2); Absolute Eosinophil Count 0.15 10^3/uL (0.0-0.7); Absolute Lymphocyte Count 2.73 10^3/uL (1.2-3.4); Absolute Monocyte Count 0.37 10^3/uL (0.1-0.8); Absolute Neutrophil Count 3.96 10^3/uL (1.2-6.7); Basophils % 0.6 %; Eosinophils % 2.1 %; HCT 49.8 % (36.0-46.0); HGB 17.4 g/dL (11.2-15.7); Immature Grans % 0.1 %; Lymphocytes % 37.6 %; MCHC 34.9 % (32.0-36.0); MCV 97 fL (80-95); MPV 10.3 fL (8.0-11.0); Monocytes % 5.1 %; Neutrophils % 54.5 %; Platelet Count 247 10^3/uL (130-400); RBC 5.12 10^6/uL (3.93-5.22); RDW 12.8 % (11.7-14.6); RDW-SD 45.7 fL; WBC 7.26 10^3/uL (4.4-10.8)
[2024-09-08 21:09] LABS: ALT 48 U/L (14-59); AST 60 U/L (15-37); Albumin 4.1 g/dL (3.4-5.0); Alkaline Phosphatase 104 U/L (46-116); Anion Gap 11.6 mmol/L (3-11); BUN 8 mg/dL (7-18); CO2 26.4 mmol/L (21.0-32.0); CREATININE 0.8 mg/dL (0.55-1.02); Calcium 9.3 mg/dL (8.5-10.1); Calculated LDL 179 mg/dL (<100); Chloride 103 mmol/L (98-107); Cholesterol 260 mg/dL (<200); Estimated GFR 88.05 (mL/min/1.73m2); Folate 4.1 ng/mL (8.6-20.0); Glucose 85 mg/dL (74-106); HDL Cholesterol 51 mg/dL (40-60); Potassium 3.9 mmol/L (3.5-5.1); Sodium 141 mmol/L (136-145); TSH 2.84 uIU/mL (0.36-3.74); Triglyceride 153 mg/dL (<150); Vitamin B12 334 pg/mL (193-986); Vitamin D 25 Total 5.9 ng/mL (30-100)
[2024-09-08 21:25] LABS: FREE T4 0.86 ng/dL (0.76-1.46)
== END 2024-09-08 15:48 | disposition home or self-care (01) ==
LOC: NCHCN 15:47
PROVIDERS: Visit Provider Nurse Practitioner Family
DX: F51.04 Psychophysiologic insomnia (principal); I10 Essential (primary) hypertension; R53.83 Other fatigue; E78.2 Mixed hyperlipidemia
CPT/HCPCS: 80053; 80061; 82306; 82607; 82746; 84439; 84443; 85025